=== PATIENT | male | born 1980 ===

== ENCOUNTER 2017-11-14 19:58 | Emergency (ER) | payer SELFPAY ==
[2017-11-14] MEDS ORDERED: NA CHLORIDE 0.9% 0 ML ONE (20:44)
[2017-11-14] MEDS ORDERED: LORazepam 2 MG/ML VIAL ONE (20:44)
[2017-11-14] MEDS ORDERED: NA CHLORIDE 0.9% 1,000 ML ONE (20:59)
[2017-11-14 21:17] LABS: Absolute Lymphocytes (CBC) 1.9 K/uL (0.7-4.9); Absolute Monocytes 0.7 K/uL (0.1-1.3); Absolute Neutrophil 5.6 K/uL (1.8-8.0); Basophils % 0.8 % (0-1.3); Hematocrit 43.8 % (39.6-49.0); Lymphocytes % 22.6 % (15.3-44.8); MCH 28.4 pg (27.0-35.0); MCV 83.9 fL (80-100); MPV 7.3 fL (7.6-11.3); Monocytes % 8.8 % (3.3-12.3); RBC Red Blood Cell Count 5.22 M/uL (4.33-5.43)
[2017-11-14 21:25] LABS: Urine Blood NEGATIVE (NEG); Urine Glucose NEGATIVE (NEG); Urine Protein NEGATIVE (NEG); Urine Specific Gravity 1.015 (1.005-1.030)
[2017-11-14 21:27] LABS: Glucose Level 110 mg/dL (65-120)
[2017-11-14 21:33] LABS: Albumin 4.4 g/dL (3.2-5.5); Alkaline Phosphatase 76 IU/L (42-121); BUN Blood Urea Nitrogen 9 mg/dL (6-20); Bilirubin Direct 0.2 mg/dL (0-0.2); Bilirubin Total 0.8 mg/dL (0.3-1.2); Magnesium 2.1 mg/dL (1.8-2.5)
[2017-11-14 21:35] LABS: Barbiturates NEGATIVE; Benzodiazepines NEGATIVE; Cocaine NEGATIVE; Opiates NEGATIVE; Phencyclidine NEGATIVE; THC Cannibis NEGATIVE
[2017-11-14 21:41] LABS: ALT/SGPT 22 IU/L (10-60); AST/SGOT 21 IU/L (10-42); Bicarbonate 26 mEq/L (21-31); Creatine Phosphokinase 92 IU/L (22-269); Potassium 3.3 mEq/L (3.6-5.0); Sodium Level 136 mEq/L (135-145)
[2017-11-14 21:41] LABS: METHAMPHETAM POSITIVE (NEGATIVE)
[2017-11-14] MEDS ORDERED: POTASSIUM CL SA 10 MEQ TAB PO ONE (21:58)
--- NOTE | 2017-11-14 22:44 | EDPHYS ---
Physician Documentation [facility] Name: Ovidio Pizarro Age: 36 yrs Sex: Male : 1980 Arrival Date: 11/14/2017 Time: 20:00 Bed 4 Private MD: ED Physician Danie Wetzel HPI: 11/14 21:12 This 36 yrs old Male presents to ER via Ambulatory with unknown complaint. wa 21:12 states feeling mouth dry, dizzy, lack of focus, after eating a cake sold to him by a ms wireless engineer. also drunk an "energy drink" today he's never had before. denies chest pain or SOB. denies abd pain. states did not have enough sleep yesterday due to stressful conversation with his brother. Onset: The symptoms/episode began/occurred today. Severity of symptoms: At their worst the symptoms were moderate in the emergency department the symptoms are unchanged. The patient has not experienced similar symptoms in the past. The patient has not recently seen a physician. Historical: - Allergies: 20:10 No Known Allergies; lp1 - Home Meds: 20:10 None [Active]; lp1 - PMHx: 20:10 None; lp1 - PSHx: 20:10 None; lp1 - Immunization history:: Adult Immunizations up to date. - Social history:: Smoking status: Patient uses tobacco products, smokes two packs cigarettes per day. - Ebola Screening: : No symptoms or risks identified at this time. - Family history:: not pertinent. - Hospitalizations: : No recent hospitalization is reported. ROS: 21:15 Constitutional: Negative for fever, chills, and weight loss, Eyes: Negative for injury, wa pain, redness, and discharge, ENT: Negative for injury, pain, and discharge, Neck: Negative for injury, pain, and swelling, Respiratory: Negative for shortness of breath, cough, wheezing, and pleuritic chest pain, Abdomen/GI: Negative for abdominal pain, nausea, vomiting, diarrhea, and constipation, Back: Negative for injury and pain, : Negative for injury, bleeding, discharge, and swelling, MS/Extremity: Negative for injury and deformity, Skin: Negative for injury, rash, and discoloration. 21:15 Cardiovascular: Positive for Negative for chest pain, edema, orthopnea, palpitations. 21:15 Neuro: Positive for dizziness, jittery. having problems focusing on tasks. 21:15 All other systems are negative. Exam: 21:16 Constitutional: This is a well developed, well nourished patient who is awake, alert, wa and in no acute distress. Head/Face: Normocephalic, atraumatic. Eyes: Pupils equal round and reactive to light, extra-ocular motions intact. Lids and lashes normal. Conjunctiva and sclera are non-icteric and not injected. Cornea within normal limits. Periorbital areas with no swelling, redness, or edema. ENT: Nares patent. No nasal discharge, no septal abnormalities noted. Tympanic membranes are normal and external auditory canals are clear. Oropharynx with no redness, swelling, or masses, exudates, or evidence of obstruction, uvula midline. Mucous membranes moist. Neck: Trachea midline, no thyromegaly or masses palpated, and no cervical lymphadenopathy. Supple, full range of motion without nuchal rigidity, or vertebral point tenderness. No Meningismus. Chest/axilla: Normal chest wall appearance and motion. Nontender with no deformity. No lesions are appreciated. Respiratory: Lungs have equal breath sounds bilaterally, clear to auscultation and percussion. No rales, rhonchi or wheezes noted. No increased work of breathing, no retractions or nasal flaring. Abdomen/GI: Soft, non-tender, with normal bowel sounds. No distension or tympany. No guarding or rebound. No evidence of tenderness throughout. Back: No spinal tenderness. No costovertebral tenderness. Full range of motion. Skin: Warm, dry with normal turgor. Normal color with no rashes, no lesions, and no evidence of cellulitis. MS/ Extremity: Pulses equal, no cyanosis. Neurovascular intact. Full, normal range of motion. 21:16 Cardiovascular: Rate: tachycardic, Rhythm: regular, Pulses: no pulse deficits are appreciated, Heart sounds: normal, Edema: is not appreciated. 21:16 Neuro: appears bothered. . 21:16 Neuro: . 21:16 Neuro: Orientation: is normal, Mentation: is normal, Cranial nerves: grossly normal, Motor: is normal, Gait: is steady. 21:16 Psych: appears worried and bothered. Vital Signs: 20:09 BP 155 / 92; Pulse 116; Resp 18; Temp 98.9(O); Pulse Ox 100% on R/A; Weight 68.04 kg; lp1 Height 6 ft. 2 in. (187.96 cm); 21:09 BP 137 / 91; Pulse 98; Resp 18; ak1 22:47 BP 138 / 85; Pulse 76; Resp 18; Temp 98.3; Pulse Ox 100% on R/A; Pain 0/10; ak1 20:09 Body Mass Index 19.26 (68.04 kg, 187.96 cm) lp1 MDM: 20:14 Patient medically screened. ms 21:18 Differential Diagnosis convinced he ingested amphetamines or cocaine from street ms vendor. states googled his symptoms and fear he's having a heart attack. suspect symptoms of sympathomimetic state possibly secondary to new "energy" drink. will work up. fluids, Ativan, reassess. will check UDS. Data reviewed: vital signs, nurses notes, lab test result(s), EKG. Test interpretation: by ED physician or midlevel provider: EKG 20:59 hrs: HR 86. nml axis. wnl. 21:51 Test interpretation: by ED physician or midlevel provider: labs noted for hypokalemia. wa UDS noted for amphetamines.. Special discussion: positive amphetamines. may explain pt's presenting symptoms. will reassess. 22:42 Response to treatment: the patient's symptoms have markedly improved after treatment, ms states feels much better. HR 86. 11/14 20:40 Order name: Basic Metabolic Panel; Complete Time: 21:49 ms 11/14 20:40 Order name: CBC with Diff; Complete Time: 21:50 ms 11/14 20:40 Order name: CPK; Complete Time: 21:50 ms 11/14 20:40 Order name: LFT's; Complete Time: 21:50 ms 11/14 20:40 Order name: Magnesium; Complete Time: 21:50 ms 11/14 20:40 Order name: Troponin (emerg Dept Use Only); Complete Time: 21:50 ms 11/14 20:40 Order name: XRAY Chest (1 view) ms 11/14 20:40 Order name: EKG; Complete Time: 20:41 ms 11/14 20:40 Order name: Cardiac monitoring; Complete Time: 21:07 ms 11/14 20:45 Order name: Urine Drug Screen; Complete Time: 21:50 ms 11/14 21:21 Order name: Urine Dipstick--Ancillary (enter results); Complete Time: 21:49 [facility] 11/14 20:40 Order name: EKG - Nurse/Tech; Complete Time: 21:07 ms 11/14 20:40 Order name: IV Saline Lock; Complete Time: 21:06 ms 11/14 20:40 Order name: Labs collected and sent; Complete Time: 21: ms 11/14 20:40 Order name: O2 Per Protocol; Complete Time: 20:41 ms 11/14 20:40 Order name: O2 Sat Monitoring; Complete Time: 20:41 ms 11/14 20:40 Order name: Urine Dipstick-Ancillary (obtain specimen); Complete Time: 22:46 ms Administered Medications: 21:06 Drug: NS 0.9% 1000 ml Route: IV; Rate: 1000 ml; Site: right antecubital; ak1 22:47 Follow up: IV Status: Completed infusion ak1 21:06 Not Given (Patient Refused): Ativan 1 mg IVP once ak1 22:02 Drug: Potassium Chloride 40 mEq Route: PO; ea 22:29 Follow up: Response: No adverse reaction ea Disposition: 11/14/17 22:43 Discharged to Home. Impression: Acute Anxiety related to Substance Ingestion. - Condition is Stable. - Medication Reconciliation Form, Thank You Letter, Antibiotic Education, Prescription Opioid Use form. - Follow up: Private Physician; When: 2 - 3 days; Reason: Re-evaluation by your physician. - Problem is new. - Symptoms have improved. - Notes: limit your use of coffee and energy drinks as they do exacerbate the symptoms you presented with today. do not take amphetamines Signatures: Dispatcher [employer] EDMS Radha Lu RN RN lp1 Leda Molina RN RN ak1 Jie Shepard RN RN ea Appiah, William, MD MD ms Corrections: (The following items were deleted from the chart) 23:13 22:43 11/14/2017 22:43 Discharged to Home. Impression: Acute Anxiety related to ea Substance Ingestion. Condition is Stable. Forms are Medication Reconciliation Form, Thank You Letter, Antibiotic Education, Prescription Opioid Use. Follow up: Private Physician; When: 2 - 3 days; Reason: Re-evaluation by your physician. Problem is new. Symptoms have improved. wa
--- NOTE | 2017-11-14 22:44 | ER ---
Nurse's Notes [facility] Name: Ovidio Pizarro Age: 36 yrs Sex: Male : 1980 Arrival Date: 11/14/2017 Time: 20:00 Bed 4 Private MD: Diagnosis: Acute Anxiety related to Substance Ingestion Presentation: 11/14 20:03 Presenting complaint: Patient states: States eating brownie from a man he doesn't lp1 really know around 12-1pm today; Ever since, he has felt hyper, dizzy, can't focus, dry mouth; Looked up symptoms on internet and believes he may have ingested cocaine. Transition of care: patient was not received from another setting of care. Onset of symptoms was November 14, 2017 at 12:00. Risk Assessment: Do you want to hurt yourself or someone else? Patient reports no desire to harm self or others. Initial Sepsis Screen: Does the patient meet any 2 criteria? No. Patient's initial sepsis screen is negative. Does the patient have a suspected source of infection? No. Patient's initial sepsis screen is negative. Care prior to arrival: None. 20:03 Method Of Arrival: Ambulatory lp1 20:03 Acuity: MIRANDA 3 lp1 Historical: - Allergies: 20:10 No Known Allergies; lp1 - Home Meds: 20:10 None [Active]; lp1 - PMHx: 20:10 None; lp1 - PSHx: 20:10 None; lp1 - Immunization history:: Adult Immunizations up to date. - Social history:: Smoking status: Patient uses tobacco products, smokes two packs cigarettes per day. - Ebola Screening: : No symptoms or risks identified at this time. - Family history:: not pertinent. - Hospitalizations: : No recent hospitalization is reported. Screenin:10 Abuse screen: Denies threats or abuse. Denies injuries from another. Nutritional lp1 screening: No deficits noted. Tuberculosis screening: No symptoms or risk factors identified. Fall Risk None identified. Assessment: 20:25 General: Appears uncomfortable, Behavior is anxious. General: Reports Has been having a ea hard time sleeping and feels restless. Pain: Complains of pain in dorsal aspect of left forearm Pain does not radiate. Pain currently is 4 out of 10 on a pain scale. Quality of pain is described as shooting. Neuro: Level of Consciousness is awake, alert, obeys commands, Oriented to person, place, time. Neuro:. Cardiovascular: Heart tones S1 S2 present Patient's skin is warm and dry. Respiratory: Airway is patent Respiratory effort is even, unlabored, Respiratory pattern is regular, symmetrical, Breath sounds are clear bilaterally. GI: No signs and/or symptoms were reported involving the gastrointestinal system. : No signs and/or symptoms were reported regarding the genitourinary system. EENT: No signs and/or symptoms were reported regarding the EENT system. Derm: Skin is pink, warm \T\ dry. Musculoskeletal: Circulation, motion, and sensation intact. 21:50 Reassessment: Patient and/or family updated on plan of care and expected duration. Pain ea level reassessed. Patient is alert, oriented x 3, equal unlabored respirations, skin warm/dry/pink. 22:40 Reassessment: Patient and/or family updated on plan of care and expected duration. Pain ea level reassessed. Patient is alert, oriented x 3, equal unlabored respirations, skin warm/dry/pink. Discharge instructions given to patient, verbalized the understanding of instructions. Vital Signs: 20:09 BP 155 / 92; Pulse 116; Resp 18; Temp 98.9(O); Pulse Ox 100% on R/A; Weight 68.04 kg; lp1 Height 6 ft. 2 in. (187.96 cm); 21:09 BP 137 / 91; Pulse 98; Resp 18; ak1 22:47 BP 138 / 85; Pulse 76; Resp 18; Temp 98.3; Pulse Ox 100% on R/A; Pain 0/10; ak1 20:09 Body Mass Index 19.26 (68.04 kg, 187.96 cm) lp1 ED Course: 20:00 Patient arrived in ED. ds1 20:06 Triage completed. lp1 20:06 Arm band placed on left wrist. lp1 20:14 Danie Wetzel MD is Attending Physician. wa 20:19 Leda Molina, EDGAR is Primary Nurse. ak1 20:19 No provider procedures requiring assistance completed. ak1 21:07 Patient has correct armband on for positive identification. Bed in low position. Call ak1 light in reach. monitoring coordinator on. Pulse ox on. NIBP on. 21:07 Initial lab(s) drawn, by me, sent to lab. EKG done, by ED staff, reviewed by Danie Wetzel MD. Inserted saline lock: 20 gauge in right antecubital area, using aseptic technique. Blood collected. 21:28 XRAY Chest (1 view) In Process Unspecified. EDMS 22:40 IV discontinued, intact, bleeding controlled, No redness/swelling at site. Pressure ea dressing applied. Administered Medications: 21:06 Drug: NS 0.9% 1000 ml Route: IV; Rate: 1000 ml; Site: right antecubital; ak1 22:47 Follow up: IV Status: Completed infusion ak1 21:06 Not Given (Patient Refused): Ativan 1 mg IVP once ak1 22:02 Drug: Potassium Chloride 40 mEq Route: PO; ea 22:29 Follow up: Response: No adverse reaction ea Outcome: 22:40 Discharge instructions given to patient, Instructed on discharge instructions, follow ea up and referral plans. Demonstrated understanding of instructions, follow-up care. 22:43 Discharge ordered by . az 22:48 Discharged to home ambulatory. ak1 22:48 Condition: good 23:13 Patient left the ED. ea Signatures: Dispatcher [employer] EDGA Li Garza ds1 Radha Lu RN RN lp1 Leda Molina RN RN ak1 Jie Shepard RN RN ea Appiah, MD MD fernanda Helton Corrections: (The following items were deleted from the chart) 23:12 22:55 Reassessment: Patient and/or family updated on plan of care and expected ea duration. Pain level reassessed. Patient is alert, oriented x 3, equal unlabored respirations, skin warm/dry/pink. Discharge instructions given to patient, verbalized the understanding of instructions. ea
--- NOTE | 2017-11-15 08:45 | RAD REPORT ---
EXAM DESCRIPTION: RAD - Chest Single View - 11/14/2017 9:28 pm CLINICAL HISTORY: Dizziness, shortness of breath, possible toxin ingestion COMPARISON: None. TECHNIQUE: AP portable chest image was obtained 2108 hours . FINDINGS: Lungs are clear. Heart and vasculature are normal. No measurable pleural effusion and no p neumothorax. No gross bony abnormality seen. No acute aortic findings suspected. IMPRESSION: No acute cardiopulmonary process.
--- NOTE | 2017-11-15 12:45 | EKG ---
Test Date: 2017-11-14 Test Time: 20:59:43 Senior Tax Specialist: LEROY MEASUREMENT RESULTS: Intervals: Rate: 86 SD: 126 QRSD: 82 QT: 378 QTc: 452 [place]: P: 72 SD: 126 QRS: 20 T: 41 INTERPRETIVE STATEMENTS: Normal sinus rhythm Normal ECG No previous ECG available for comparison Electronically Signed On 11-15-17 12:43:37 CDT by Siddhartha Bo
== END 2017-11-14 23:13 | disposition home or self-care (01) ==
LOC: ER 19:58
DX: F15.980 Other stimulant use, unspecified with stimulant-induced anxiety disorder (principal); F17.210 Nicotine dependence, cigarettes, uncomplicated
CPT/HCPCS: 36415; 71045; 80048; 80076; 80307; 81003; 82550; 83735; 84484; 85025; 93005; 96360; 96361; 99284; J7030